=== PATIENT | female | born 1960 | race Caucasian/White ===

== ENCOUNTER → 2021-02-20 12:13 | Outpatient (CLI) | payer OTHER, SELFPAY ==
[2021-02-20 20:39] LABS: COVID19 - ORCAS (NP or Nasal) Negative (Negative)
== END ==
PROVIDERS: PCP Family Medicine; Visit Provider Physician Assistant
DX: Z20.822 Contact with and (suspected) exposure to COVID-19 (principal)
CPT/HCPCS: U0003

== ENCOUNTER → 2021-07-02 10:50 | Outpatient (CLI) | payer OTHER, SELFPAY ==
[2021-07-02 19:32] LABS: Add Manual Diff / Slide Review NO; Basophils Absolute Auto 0 /uL (0-100); Basophils Percent Auto 0.3 % (0-2); Eosinophils Absolute Auto 200 /uL (0-450); Eosinophils Percent Auto 3.7 % (2-4); Hematocrit 40.7 % (36-46); Hemoglobin 13.6 g/dL (12.0-16.0); Lymphocytes Absolute Auto 1300 /uL (1100-4500); Lymphocytes Percent Auto 30.2 % (25-40); Mean Corpuscular HGB Conc 33.3 % (30-36); Mean Corpuscular Hemoglobin 29.8 PG (26-34); Mean Corpuscular Volume 89.4 fL (80-100); Monocytes Absolute Auto 400 /uL (0-900); Monocytes Percent Auto 8.9 % (3-14); Neutrophils Absolute Auto 2500 /uL (1500-7000); Neutrophils Percent Auto 56.9 % (50-75); Platelet Count 254 X10^3/uL (150-400); Red Blood Cell Count 4.55 X10^6/uL (4.0-5.2); Red Cell Distribution Width 12.8 % (11.6-14.8); White Blood Cell Count 4.4 X10^3/uL (4.5-11.0)
[2021-07-02 19:42] LABS: Alanine Aminotransferase 24 IU/L (<35); Albumin 4.4 g/dL (3.5-5.0); Albumin Globulin Ratio 1.5 (1.0-2.8); Alkaline Phosphatase 56 U/L (38-126); Aspartate Aminotransferase 30 IU/L (14-36); BUN Creatinine Ratio 20.9 (6-22); Bilirubin Total 0.5 mg/dL (0.2-1.3); Blood Urea Nitrogen 14 mg/dL (7-17); Calcium 9.6 mg/dL (8.4-10.2); Carbon Dioxide 29 mmol/L (22-32); Chloride 105 mmol/L (98-107); Estimated Glomerular Filt Rate > 60.0 mL/min (>60); Glucose 98 mg/dL (70-100); HEMOLYSIS < 15 (0-50); Potassium 4.4 mmol/L (3.4-5.1); Sodium 140 mmol/L (137-145); Total Protein 7.4 g/dL (6.3-8.2)
[2021-07-02 19:54] LABS: Erythrocyte Sedimentation Rate 16 MM/HR (0-20)
[2021-07-02 19:56] LABS: Vitamin D 25 Hydroxy (D3) 27.7 ng/mL (30.0-100.0)
[2021-07-06 18:21] LABS: QuantiFERON Mitogen Value >10.00 IU/mL (.); QuantiFERON Nil Value 0.06 IU/mL (.); QuantiFERON TB Gold Plus Negative (Negative); QuantiFERON TB1 Ag Value 0.15 IU/mL (.); QuantiFERON TB2 Ag Value 0.17 IU/mL (.)
== END ==
PROVIDERS: PCP Family Medicine; Visit Provider Family Medicine
DX: R05 Cough (principal); R79.89 Other specified abnormal findings of blood chemistry
CPT/HCPCS: 80053; 82306; 83735; 85025; 85651; 86480

== ENCOUNTER 2022-06-21 09:28 | Emergency (ER) | payer OTHER, SELFPAY ==
[2022-06-21] VITALS (11 sets, daily range): BP systolic 92–116; BP diastolic 54–64; PULSE 18–69; RESP 12–20; TEMP 35.9; O2SAT 96–100; BMI 23.6
--- NOTE | 2022-06-21 09:54 | ED.GENADULT ---
HPI - General Adult General Chief complaint: Abdominal Pain Stated complaint: Severe adb pain Time Seen by Provider: 06/21/22 09:44 Source: patient Mode of arrival: Wheelchair History of Present Illness HPI narrative: Patient is a 61-year-old female who woke up this morning at approximately 0400 hours with fairly severe upper bilateral abdominal discomfort. She went to bed last night without any issues. Has not had any diarrhea. Since the onset of the symptoms has had multiple episodes of vomiting. The pain has continued/worsened. The vomiting does not seem to change the discomfort at all. She is never had anything like this in the past. She has had 1 in the past but no other abdominal surgeries. She did receive Zofran by paramedics prior to arrival otherwise no other interventions. Denies shortness of breath. Denies chest pain. Related Data Home Medications Medication Instructions Recorded Confirmed albuterol sulfate 90 mcg/actuation 2 puff inhalation Q6H PRN 06/27/21 07/02/21 aerosol inhaler naproxen 500 mg tablet 500 mg PO ONCE PRN 06/27/21 07/02/21 Previous Rx's Medication Instructions Recorded ondansetron 4 mg disintegrating 4 mg PO Q6H PRN nausea and 06/21/22 tablet vomiting #10 tabs Allergies Allergy/AdvReac Type Severity Reaction Status Date / Time ANESTHESIA Allergy Unknown DIFFICULTY Uncoded 07/02/21 09:41 WAKING Review of Systems Review of Systems ROS Unobtainable: All systems reviewed & are unremarkable except as noted in HPI and below Patient History Medical History Anemia Encounter for screening mammogram for malignant neoplasm of breast Health maintenance examination Menopause Multiparity (normal spontaneous vaginal delivery) (~1994) Personal history of pneumonia Sprain of neck (~1999) Surgical History (Updated 06/27/21 @ 07:45 by Jemma Harden CMA) delivery delivered History of nasal surgery Social History Smoking Status: Never smoker Smoking Status: Never smoker alcohol intake frequency: holidays/special occasions only Substance Use Type: does not use Exam Initial Vital Signs Initial Vital Signs: Vital Signs Temperature 96.7 F L 06/21/22 09:35 Pulse Rate 63 06/21/22 09:35 Respiratory Rate 16 06/21/22 09:35 Blood Pressure 116/59 L 06/21/22 09:35 Pulse Oximetry 100 06/21/22 09:35 Oxygen Delivery Method 06/21/22 09:35 Const General: cooperative, comfortable and well developed [facility] Head: normal to inspection and normocephalic Resp Effort & Inspection: normal respiratory effort Auscultation: clear to auscultation bilaterally Cardio Rate: regular rate Rhythm: regular rhythm GI Inspection: normal to inspection Palpation: soft, No firm, No guarding and No tender Other: Patient did not have any tenderness to her upper abdomen with palpation Back/Spine/Pelvis Back: No CVA tenderness Skin General: no rashes or lesions noted Neuro General: patient alert, patient awake and moves all extremities Extrem General: normal to inspection and capillary refill normal Psych Appearance: grossly normal and well kempt Course Orders Ordered: Discontinued Medications Acetaminophen (Acetaminophen 325 Mg Tablet) 975 mg PO NOW ONE Stop: 06/21/22 13:33 Last Admin: 06/21/22 13:34 Dose: 975 mg Documented By: AMEYA Sodium Chloride (Normal Saline 0.9%) 1,000 mls @ 1,000 mls/hr IV BOLUS ONE Stop: 06/21/22 10:55 Last Infusion: 06/21/22 13:17 Dose: 0 mls/hr Documented By: Admin: 06/21/22 10:15 Dose: 1,000 mls/hr Documented By: AMEYA Morphine Sulfate (Morphine 4 Mg/Ml Inj) 4 mg IV NOW ONE Stop: 06/21/22 11:10 Last Admin: 06/21/22 11:16 Dose: 4 mg Documented By: AT Vital Signs Vital signs: Vital Signs - 8 hr 06/21/22 09:35 Temperature 96.7 F L Pulse Rate 63 Respiratory Rate 16 Blood Pressure 116/59 L Pulse Oximetry 100 Oxygen Delivery Method Room Air Medical Decision Making Lab Data Lab results reviewed: Yes I reviewed the patient's lab results. Result diagrams: 06/21/22 09:51 06/21/22 09:51 Labs: Lab Results 06/21/22 06/21/22 06/21/22 Range/Units 09:51 09:51 09:51 WBC 13.6 H (4.5-11.0) X10^3/uL RBC 4.56 (4.0-5.2) X10^6/uL Hgb 13.5 (12.0-16.0) g/dL Hct 40.1 (36-46) % MCV 87.9 (80-100) fL MCH 29.5 (26-34) PG MCHC 33.6 (30-36) % RDW 13.4 (11.6-14.8) % Plt Count 230 (150-400) X10^3/uL Neut % (Auto) 90.0 H (50-75) % Lymph % (Auto) 4.9 L (25-40) % [place] % (Auto) 4.6 (3-14) % Eos % (Auto) 0.3 L (2-4) % Baso % (Auto) 0.2 (0-2) % Neut # (Auto) 77430 H (6719-6069) /uL Lymph # (Auto) 700 L (8295-0943) /uL [place] # (Auto) 600 (0-900) /uL Eos # (Auto) 0 (0-450) /uL Baso # (Auto) 0 (0-100) /uL PT 12.4 (10.1-12.7) SECONDS INR 1.1 (0.9-1.3) APTT 28 (26-36) SECONDS Sodium 136 L (137-145) mmol/L Potassium 4.3 (3.4-5.1) mmol/L Chloride 103 (98-107) mmol/L Carbon Dioxide 29 (22-32) mmol/L BUN 17 (7-17) mg/dL Creatinine 0.70 (0.52-1.04) mg/dL Estimated GFR > 60 (>60) mL/min BUN/Creatinine Ratio 24.3 H (6-22) Glucose 128 H (70-100) mg/dL Calcium 9.3 (8.4-10.2) mg/dL Total Bilirubin 0.9 (0.2-1.3) mg/dL AST 92 H (14-36) IU/L ALT 61 H (<35) IU/L Alkaline Phosphatase 51 (38-126) U/L Total Protein 8.1 (6.3-8.2) g/dL Albumin 4.6 (3.5-5.0) g/dL Globulin 3.5 (1.7-4.1) g/dL Albumin/Globulin Ratio 1.3 (1.0-2.8) Lipase 64 (23-300) U/L Imaging Data CT scan - abdomen/pelvis: Radiologist's Impression: Cholelithiasis however no other acute pathology ECG Data Attestation: I personally reviewed and interpreted this ECG as follows: Interpretation: Sinus rhythm Ventricular rate is 60 Normal axis Normal QRS Normal QTC No ST T wave changes MDM Narrative Medical decision making narrative: Leukocytosis but no other signs of infection. Most likely related to stress reaction secondary to all the vomiting. CT scan shows cholelithiasis without signs of acute cholecystitis. Lipase normal. LFTs unremarkable. Patient states that her symptoms are much better after treatments here in the emergency department. There is no indication for antibiotics. No indication for further radiologic studies. No indication for surgical consultation at the ER however I told the patient that she may want to contact the general surgery department to discuss having a cholecystectomy. She was given contact information for this. Sent home with nausea medication. Tylenol and ibuprofen for discomfort. She was given return precautions. She expressed understanding and agreement. Discharge Plan Departure Patient Disposition: Home Clinical Impression: Abdominal pain, Cholelithiasis Instructions: DI for Abdominal Pain-Adult Activity Restrictions/Additional Instructions: I do recommend that you avoid foods that could potentially cause pain with your gallbladder. These foods include things that are high increase/fat/oils. Contact your primary doctor for a follow-up. If needed contact the general surgeons at the number provided below. Return to the emergency department for any new or worsening symptoms. Prescriptions: New ondansetron 4 mg tablet,disintegrating 4 mg PO Q6H PRN (Reason: nausea and vomiting) Qty: 10 0RF No Action albuterol sulfate 90 mcg/actuation HFA aerosol inhaler 2 puff inhalation Q6H PRN naproxen 500 mg tablet 500 mg PO ONCE PRN Referrals: Kristopher Brennan MD [Physician] - Sanjiv Diaz MD [Primary Care Provider] - Visit Report Forms: Patient Portal/API
--- NOTE | 2022-06-21 09:56 | DI.CT.S_ITS ---
PROCEDURE: CT ABDOMEN PELVIS WO CON INDICATIONS: Upper abdominal pain and nausea and vomiting. TECHNIQUE: Noncontrast 5 mm thick sections acquired from the diaphragms to the symphysis. 5 mm coronal and sagittal reformats were then performed. For radiation dose reduction, the following was used: automated exposure control, adjustment of mA and/or kV according to patient size. COMPARISON: None. FINDINGS: Image quality: Excellent. ABDOMEN: Lung bases: Lung bases are otherwise clear. A small pneumatocele is present at the left lung base. Heart size is normal. Solid organs: Liver is normal in size. Calcified gallstones larva present in the gallbladder fundus. No gallbladder wall thickening or pericholecystic fluid.. Pancreas is normal in contours. Spleen is normal in size. No adrenal nodules. Kidneys are normal in size, without hydronephrosis or nephrolithiasis. Peritoneum and bowel: Unenhanced bowel loops demonstrate normal wall thickness and caliber. The appendix is thin walled and gas filled. No free fluid or air. Nodes and vessels: No retroperitoneal or mesenteric adenopathy by size criteria. Aorta and inferior vena cava are normal in caliber. Miscellaneous: No ventral hernias. PELVIS: Genitourinary: Bladder wall thickness is normal. Miscellaneous: No inguinal hernias or adenopathy. Bones: No suspicious bony lesions. No vertebral body compression fractures. IMPRESSION: 1. Cholelithiasis. No findings to suggest choledocholithiasis or acute cholecystitis. 2. No acute intra-abdominal findings. Normal appendix. Dictated by: Johana Carlos M.D. on 06/21/2022 at 11:00 Approved by: Johana Carlos M.D. on 06/21/2022 at 11:09
[2022-06-21 10:01] LABS: Add Manual Diff / Slide Review NO; Basophils Absolute Auto 0 /uL (0-100); Basophils Percent Auto 0.2 % (0-2); Eosinophils Absolute Auto 0 /uL (0-450); Eosinophils Percent Auto 0.3 % (2-4); Hematocrit 40.1 % (36-46); Hemoglobin 13.5 g/dL (12.0-16.0); Lymphocytes Absolute Auto 700 /uL (1100-4500); Lymphocytes Percent Auto 4.9 % (25-40); Mean Corpuscular HGB Conc 33.6 % (30-36); Mean Corpuscular Hemoglobin 29.5 PG (26-34); Mean Corpuscular Volume 87.9 fL (80-100); Monocytes Absolute Auto 600 /uL (0-900); Monocytes Percent Auto 4.6 % (3-14); Neutrophils Absolute Auto 12200 /uL (1500-7000); Platelet Count 230 X10^3/uL (150-400); Red Blood Cell Count 4.56 X10^6/uL (4.0-5.2); Red Cell Distribution Width 13.4 % (11.6-14.8); White Blood Cell Count 13.6 X10^3/uL (4.5-11.0)
[2022-06-21 10:08] LABS: INR 1.1 (0.9-1.3); Prothrombin Time 12.4 SECONDS (10.1-12.7)
[2022-06-21 10:11] LABS: PTT Partial Thromboplastin Tim 28 SECONDS (26-36)
[2022-06-21] MEDS: SODIUM CHLORIDE 0.9% 1,000 ML 1000 ML IV (10:15)
[2022-06-21 10:19] LABS: Alanine Aminotransferase 61 IU/L (<35); Albumin 4.6 g/dL (3.5-5.0); Albumin Globulin Ratio 1.3 (1.0-2.8); Alkaline Phosphatase 51 U/L (38-126); Aspartate Aminotransferase 92 IU/L (14-36); BUN Creatinine Ratio 24.3 (6-22); Bilirubin Total 0.9 mg/dL (0.2-1.3); Blood Urea Nitrogen 17 mg/dL (7-17); Calcium 9.3 mg/dL (8.4-10.2); Carbon Dioxide 29 mmol/L (22-32); Chloride 103 mmol/L (98-107); Estimated Glomerular Filt Rate > 60 mL/min (>60); Globulin 3.5 g/dL (1.7-4.1); Glucose 128 mg/dL (70-100); HEMOLYSIS < 15 (0-50); Lipase 64 U/L (23-300); Potassium 4.3 mmol/L (3.4-5.1); Sodium 136 mmol/L (137-145); Total Protein 8.1 g/dL (6.3-8.2)
[2022-06-21] MEDS: MORPHINE 4 MG/ML INJ IV (11:16)
[2022-06-21] MEDS: ACETAMINOPHEN 325 MG TABLET 975 MG PO (13:34)
--- NOTE | 2022-06-21 13:45 | PC.NURSE ---
Discharge education provided to patient. Per Dr. Ortega previous education, encouraged pt to use Tylenol and Ibuprofen for pain control. Encouraged pt to follow up with Primary Care Provider. Unable to print pt CT Report r/t status of report, pt notified of this and encouraged to utilize online Portal or Primary Care Provider could request reports. Pt requesting [place], educated pt unable to provide. Pt states How am I supposed to get home? - visitor at bedside states they are driving pt home. Pt verbalized her disappointment with not receiving pain medication prescription for ferry home, requested Tylenol then declined. Escalated to vocal teacher and Dr. Ortega notified, Dr. Ortega reiterated education to pt and answered questions. Pt ambulatory at time of discharge, used bathroom prior to leaving ED.
== END 2022-06-21 13:50 | disposition home or self-care (01) ==
PROVIDERS: Emergency Provider Emergency Medicine; PCP Family Medicine
DX: K80.20 Calculus of gallbladder without cholecystitis without obstruction (principal); R10.9 Unspecified abdominal pain; R11.10 Vomiting, unspecified
CPT/HCPCS: 36415; 74176; 80053; 83690; 85025; 85610; 85730; 93005; 96361; 96374; 99284; J2270

== ENCOUNTER → 2022-07-09 12:44 | Outpatient (CLI) | payer OTHER, SELFPAY ==
--- NOTE | 2022-07-09 12:46 | DI.US.S_ITS ---
PROCEDURE: US ABDOMEN LIMITED INDICATIONS: ABDOMEN PAIN. FOLLOW UP CT. TECHNIQUE: Real-time focused scanning was performed of the abdomen, with image documentation. COMPARISON: [facility], CT, CT ABDOMEN PELVIS WO CON, 06/21/2022, 10:35. FINDINGS: Multiple gallstones and gallbladder sludge noted. Mild gallbladder wall thickening and pericholecystic fluid. [employer] reports a negative sonographic Rollins's sign. Normal appearance of the liver. No intrahepatic or extrahepatic biliary ductal dilatation. Pancreas normal. IMPRESSION: Cholelithiasis. Gallbladder wall thickening with small volume pericholecystic fluid raises concern for possible cholecystitis. Correlate with leukocytosis and right upper quadrant pain. Dictated by: Ángel Naranjo M.D. on 07/09/2022 at 14:04 Approved by: Ángel Naranjo M.D. on 07/09/2022 at 14:06
== END ==
PROVIDERS: PCP Internal Medicine; Referring Provider Internal Medicine; Visit Provider Internal Medicine
DX: R10.11 Right upper quadrant pain (principal); K80.20 Calculus of gallbladder without cholecystitis without obstruction
CPT/HCPCS: 76705

== ENCOUNTER → 2024-06-22 08:11 | Outpatient (CLI) | payer OTHER, SELFPAY ==
[2024-06-22 20:21] LABS: Add Manual Diff / Slide Review NO; Basophils Absolute Auto 0 /uL (0-100); Basophils Percent Auto 0.3 % (0-2); Eosinophils Absolute Auto 300 /uL (0-450); Eosinophils Percent Auto 6.7 % (2-4); Hematocrit 39.6 % (36-46); Hemoglobin 13.6 g/dL (12.0-16.0); Lymphocytes Absolute Auto 1800 /uL (1100-4500); Lymphocytes Percent Auto 35.7 % (25-40); Mean Corpuscular HGB Conc 34.3 % (30-36); Mean Corpuscular Hemoglobin 30.3 PG (26-34); Mean Corpuscular Volume 88.4 fL (80-100); Monocytes Absolute Auto 400 /uL (0-900); Monocytes Percent Auto 8.8 % (3-14); Neutrophils Absolute Auto 2400 /uL (1500-7000); Neutrophils Percent Auto 48.5 % (50-75); Platelet Count 270 X10^3/uL (150-400); Red Blood Cell Count 4.48 X10^6/uL (4.0-5.2); Red Cell Distribution Width 12.4 % (11.6-14.8); White Blood Cell Count 4.9 X10^3/uL (4.5-11.0)
[2024-06-22 20:23] LABS: Hemoglobin A1C% w Est Avg Glu 5.3 % (4.0-6.0)
[2024-06-22 20:24] LABS: Alanine Aminotransferase 34 IU/L (<35); Albumin 4.1 g/dL (3.5-5.0); Albumin Globulin Ratio 1.6 (1.0-2.8); Alkaline Phosphatase 47 U/L (38-126); Aspartate Aminotransferase 33 IU/L (14-36); BUN Creatinine Ratio 19.4 (6-22); Bilirubin Total 0.5 mg/dL (0.2-1.3); Blood Urea Nitrogen 14 mg/dL (7-17); Calcium 9.1 mg/dL (8.4-10.2); Carbon Dioxide 27 mmol/L (22-32); Chloride 106 mmol/L (98-107); Cholesterol 178 mg/dL (140-199); Estimated Glomerular Filt Rate > 60 mL/min (>60); Globulin 2.5 g/dL (1.7-4.1); Glucose 94 mg/dL (80-110); HDL Cholesterol 67 mg/dL (40-60); HEMOLYSIS < 15 (0-50); LDL Cholesterol Calculated 95 mg/dL (<100); Magnesium 2.1 mg/dL (1.6-2.3); Potassium 4.2 mmol/L (3.4-5.1); Sodium 140 mmol/L (137-145); Total Protein 6.6 g/dL (6.3-8.2); Triglycerides 78 mg/dL (35-150)
[2024-06-22 20:28] LABS: Rheumatoid Factor < 8.6 IU/mL (<12.0)
[2024-06-22 20:56] LABS: TSH w/ Reflex to FT4 2.55 uIU/mL (0.47-4.68)
[2024-06-22 20:59] LABS: Ferritin 39 ng/mL (11-264)
[2024-06-23 09:52] LABS: Hep C Virus Ab w/Reflex Quant NEGATIVE s/c (NEGATIVE)
== END ==
PROVIDERS: PCP Internal Medicine; Visit Provider Internal Medicine
DX: Z00.00 Encounter for general adult medical examination without abnormal findings (principal); M25.541 Pain in joints of right hand; M25.542 Pain in joints of left hand; R25.2 Cramp and spasm; E61.1 Iron deficiency
CPT/HCPCS: 80053; 80061; 82728; 83036; 83735; 84443; 85025; 86430; 86803